=== PATIENT | female | born 1990 | race Caucasian/White ===

== ENCOUNTER 2018-07-29 22:36 | Emergency (ER) | payer BC, OTHER ==
--- NOTE | 2018-07-30 00:07 | EDPHY ---
H & P Stated Complaint: RLQ ABD PAIN Time Seen by Provider: 07/29/18 23:39 HPI/ROS: CHIEF COMPLAINT: Right lower quadrant abdominal pain x4 days HISTORY OF PRESENT ILLNESS: 28-year-old female no history of abdominal surgeries complaining of 4 days of right lower quadrant abdominal pain. Seen urgent care recently diagnosed with bacterial vaginosis and Chlamydia untreated. She endorses diarrhea without melena hematochezia. No nausea or vomiting. She denies dyspareunia. Denies dysuria hematuria increased frequency. Denies back or flank pain. Denies rash. PRIMARY CARE PROVIDER: REVIEW OF SYSTEMS: 10 systems reviewed and negative with the exception of the elements mentioned in the history of present illness PAST MEDICAL & SURGICAL HISTORY: No pertinent medical or surgical history SOCIAL HISTORY: Single PHYSICAL EXAM (Prior to examination, patient consented to physical exam, hands were washed and my usual and customary physical exam procedures followed) 1) GENERAL: Well-developed, well-nourished, alert and oriented. Appears to be in no acute distress. 2) HEAD: Normocephalic, atraumatic 3) HEENT: Pupils equal, round, reactive to light bilaterally. Sclera anicteric. Nasopharynx, oropharynx, clear, no lesions. Moist Mucous membranes. 4) NECK: Full range of motion, no meningeal signs. 5) LUNGS: Clear auscultation bilaterally, no wheezes, no rhonchi, no retractions. 6) HEART: Regular rate and rhythm, no murmur, no heave, no gallop. 7) ABDOMEN: No guarding, mildly tender to palpation right lower quadrant, negative Fan's, negative Rovsing's, negative peritoneal sign, 8) MUSCULOSKELETAL: Moving all extremities, no focal areas of tenderness, no obvious trauma. No peripheral edema or discoloration. 9) BACK: No CVA tenderness, no midline vertebral tenderness, no fluctuance, no step-off, no obvious trauma, no visual or palpable abnormality. 10) SKIN: No rash, no petechiae. 11) Psychiatric: Patient is oriented X 3, there is no agitation. DIFFERENTIAL DIAGNOSIS: My differential diagnosis includes, but is not limited to, acute appendicitis, acute cholecystitis, bowel obstruction, acute pancreatitis, ovarian torsion, ectopic , gastritis and urinary tract infection. The patient understands that this diagnosis is provisional and can never be 100% accurate. This is a partial list of diagnoses considered. These considerations are based on history, physical exam, past history and reassessment. - Personal History LMP (Females 10-55): IUD In Place Current Tetanus Diphtheria and Acellular Pertussis (TDAP): Yes Tetanus Vaccine Date: No - Medical/Surgical History Hx Asthma: No Hx Chronic Respiratory Disease: No Hx Diabetes: No Hx Cardiac Disease: No Hx Renal Disease: No Hx Cirrhosis: No Hx Alcoholism: No Hx HIV/AIDS: No Hx Splenectomy or Spleen Trauma: No Other PMH: sinus surg, IBS, L ovarian cyst. 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, WITH 5 LIVER BIOPSIES IN 7 WEEKS, NEW MEDICATION REGIME X 7 WEEKS - Social History Smoking Status: Never smoked Constitutional: Initial Vital Signs Temperature (C) 36.6 C 07/29/18 22:40 Heart Rate 117 H 07/29/18 22:40 Respiratory Rate 16 07/29/18 22:40 Blood Pressure 108/71 07/29/18 22:40 O2 Sat (%) 95 07/29/18 22:40 O2 Delivery Mode Room Air Allergies/Adverse Reactions: No Known Allergies Allergy (Verified 05/11/15 18:41) Home Medications: Medication Instructions Recorded Ursodiol 08/26/15 Apriso 0.375 gm 07/29/18 CLONAZEPAM 07/29/18 Medical Decision Making - Diagnostics Imaging Results: Imaging Impressions Abdomen Ultrasound 07/30/18 00:05 Impression: Normal ultrasound appearance of the appendix. The final interpretation is concordant with a preliminary report provided 2018 at 0054 hours. GIOVANNA Pelvic/Renal Ultrasound 07/30/18 00:05 Impression: 1. No acute findings. 2. IUD in good position. 3. Simple 2.2 cm left paraovarian cyst. The final interpretation is concordant with a preliminary report provided 2018 at 0052 hours. GIOVANNA Images reviewed myself ED Course/Re-evaluation: 1:05 a.m.: Ultrasound of the abdomen and pelvis interpreted by tele radiology sure of this shows a normal appearing appendix and a left adnexal cyst with normal blood flow bilaterally. 1:07 a.m.: The patient was re-evaluated by myself. She continues to appear well. Doubt acute appendicitis. Doubt ovarian torsion. She has no evidence of cystitis. At this time plan will be discharge home with my usual and customary abdominal precautions and instructions. She feels comfortable being discharged. All questions and concerns addressed by myself. Patient feels comfortable being discharged. All questions and concerns addressed by myself. Patient given my usual and customary discharge precautions and instructions regarding their clinical impression. Care of patient under supervision of secondary supervising physician Dr Gonzáles with whom I discussed case. - Data Points Laboratory Results: Laboratory Results 07/29/18 23:40 07/29/18 23:40 Medications Given: Discontinued Medications Phenazopyridine HCl (Pyridium) 200 mg PO EDNOW ONE Stop: 07/30/18 01:11 Last Admin: 07/30/18 01:28 Dose: 200 mg Departure - Departure Disposition: Home, Routine, Self-Care Clinical Impression: Abdominal pain Qualifiers: Abdominal location: right lower quadrant Qualified Code(s): R10.31 - Right lower quadrant pain Condition: Good Instructions: Acute Abdominal Pain (ED) Additional Instructions: Seek immediate medical attention if you develop new or worsening symptoms, if you develop fevers, chills, inability to tolerate oral intake or any other symptoms that concerns you. Referrals: Shelby Hamilotn [Primary Care Provider] - 1 day without fail Stand Alone Forms: School Excuse
[2018-07-30] MEDS ORDERED: PHENAZOPYRIDINE HCL 200 MG TAB PO ONE (01:10)
[2018-07-30 01:30] VITALS: BP 111/73
== END 2018-07-30 01:33 | disposition home or self-care (01) ==
DX: R10.31 Right lower quadrant pain (principal)